=== PATIENT | female | born 1995 | race American Indian/Alaskan Native ===

== ENCOUNTER 2018-10-08 13:13 | Emergency (ER) | payer OTHER ==
--- NOTE | 2018-10-08 14:07 | Emergency Department Report ---
Chief Complaint: Medical Clearance Stated Complaint: THYROID Time Seen by Provider: 10/08/18 14:02 - HPI History of Present Illness: 23 y o female with hx of thyroid surgery done 3 years ago taking levothyroxine 150 mg daily presents for medication refill . Pt states she just moved here and ran out of her prescription yesterday. she sates she does not hav a PCP yet. Denies any symptoms - ROS Review of Systems: As noted in HPI - Exam Physical Exam: GEN: AAO x 3, no acute distress LUNGS: CTAB NECK: non tender, non edematous MSE screening note: Focused history and physical exam performed. Due to findings the following was ordered: ED Medical Decision Making - Medical Decision Making 23 y o f presents for medication refill VSS no acute distress discuss f/u with pcp ED Disposition for MSE Clinical Impression: Medication refill Disposition: DC- TO HOME OR SELFCARE Is pt being admited?: No Does the pt Need Aspirin: No Condition: Stable Instructions: Thyroid Supplement (By mouth) Additional Instructions: follow up with your PCP As refered take your levothyroxine daily Prescriptions: Levothyroxine [Synthroid] 150 mcg PO QAM #60 tablet Referrals: CASSIE RAI MD [Staff Physician] - 3-5 Days [facility] [Provider Group] - 3-5 Days [facility] [Outside] - 3-5 Days Forms: Work/School Release Form(ED)
[2018-10-08 14:12] VITALS: BP 140/69
== END 2018-10-08 14:20 | disposition home or self-care (01) ==
LOC: ED 13:13
DX: E03.9 Hypothyroidism, unspecified (principal); Z76.0 Encounter for issue of repeat prescription
CPT/HCPCS: 99282

== ENCOUNTER 2018-12-16 09:02 | Emergency (ER) | payer OTHER ==
--- NOTE | 2018-12-16 09:32 | Emergency Department Report ---
HPI - General Chief Complaint: Recheck/Abnormal Lab/Rx Time Seen by Provider: 12/16/18 09:20 - HPI HPI: 23-year-old -[place] female presents to the emergency department to get a refill of her levothyroxine, which she says that she has been out of for one week. She has a history of Graves' disease. She denies any physical complaints at this time. She does not have a primary care physician as she says she does not have insurance. ED Past Medical Hx - Past Medical History Additional medical history: GRAVES / DRESS - Surgical History Additional Surgical History: left hand x4, left foot, throidectomy, abscess removal x4 - Social History Smoking Status: Never Smoker Substance Use Type: None - Medications Home Medications: Home Medications Medication Instructions Recorded Confirmed Last Taken Type Levothyroxine [Synthroid] 150 mcg PO QAM #30 tablet 12/16/18 Unknown Rx ED Review of Systems ROS: Stated complaint: THYROID MEDS REFILL Other details as noted in HPI Comment: All other systems reviewed and negative Constitutional: denies: chills, fever Eyes: denies: eye pain, vision change Cardiovascular: denies: chest pain, palpitations Gastrointestinal: denies: nausea, vomiting Skin: denies: rash, lesions Neurological: denies: headache, weakness Physical Exam - Physical Exam Vital Signs: Vital Signs 12/16/18 09:11 Temperature 98.6 F Pulse Rate 97 H Respiratory 16 Rate Blood Pressure 139/82 O2 Sat by Pulse 98 Oximetry Physical Exam: GENERAL: The patient is well-developed well-nourished. HENT: Normocephalic. Atraumatic. Patient has moist mucous membranes. EYES: Extraocular motions are intact. Pupils equal bilaterally. No current exophthalmos or proptosis. NECK: Supple. Trachea is midline. CHEST/LUNGS: Clear to auscultation. There is no respiratory distress noted. HEART/CARDIOVASCULAR: Regular. There is no tachycardia. There is no murmur. ABDOMEN: here is no abdominal distention. SKIN: Skin is warm and dry. NEURO: The patient is awake, alert, and oriented. The patient is cooperative. The patient has no focal neurologic deficits. The patient has normal speech. MUSCULOSKELETAL: There is no tenderness or deformity. There is no evidence of acute injury. ED Course Vital Signs 12/16/18 09:11 Temperature 98.6 F Pulse Rate 97 H Respiratory 16 Rate Blood Pressure 139/82 O2 Sat by Pulse 98 Oximetry ED Medical Decision Making - Medical Decision Making This patient presents solely for the request of a medication refill of her levothyroxine. The patient does not have a primary care physician. She was g iven a one-month refill of her medication and multiple referrals for local primary care clinics. She has no physical complaints, including anything that would be concerning for hyperthyroidism or hypothyroidism. Vital signs stable. - Differential Diagnosis hyperthyroidism, hypothyroidism, Graves' disease Critical Care Time: No Critical care attestation.: If time is entered above; I have spent that time in minutes in the direct care of this critically ill patient, excluding procedure time. ED Disposition Clinical Impression: Medication refill Disposition: DC-01 TO HOME OR SELFCARE Is pt being admited?: No Condition: Stable Instructions: Hypothyroidism (ED) Additional Instructions: Please follow up with one of the referred primary care clinics to establish care. Return to the emergency Department with any concerns or any acute distress. Prescriptions: Levothyroxine [Synthroid] 150 mcg PO QAM #30 tablet Referrals: [facility] [Outside] - 3-5 Days [facility] [Outside] - [facility] - [facility]-5 Days Time of Disposition: 09:32
[2018-12-16 09:50] VITALS: BP 135/78
== END 2018-12-16 09:47 | disposition home or self-care (01) ==
LOC: ED 09:02
DX: E05.00 Thyrotoxicosis with diffuse goiter without thyrotoxic crisis or storm (principal); Z76.0 Encounter for issue of repeat prescription; Z88.1 Allergy status to other antibiotic agents; Z88.2 Allergy status to sulfonamides; Z88.6 Allergy status to analgesic agent; Z88.8 Allergy status to other drugs, medicaments and biological substances
CPT/HCPCS: 99282

== ENCOUNTER 2019-01-17 17:35 | Emergency (ER) | payer OTHER ==
[2019-01-17 18:08] VITALS: BP 137/77
--- NOTE | 2019-01-17 18:10 | Emergency Department Report ---
Blank Doc - Documentation Documentation: This is a 23-year-old female that presents with generlized weakness. Stated has been out of her medication for her thyroid. Also has headache after hitting headache against metal pole at work last week. Denies any LOC. Stated headache is getting worse. This initial assessment/diagnostic orders/clinical plan/treatment(s) is/are subject to change based on patient's health status, clinical progression and re- assessment by fellow clinical providers in the ED. Further treatment and workup at subsequent clinical providers discretion. Patient/guardians urged not to elope from the ED as their condition may be serious if not clinically assessed and managed. Initial orders include: 1- Patient sent to [facility] for further evaluation and treatment. 2- labs 3- CT head
[2019-01-17 19:22] LABS: Basophils # (Auto) 0.1 K/mm3 (0.0-0.1); Basophils % (Auto) 0.4 % (0.0-1.8); Eosinophils % (Auto) 0.2 % (0.0-4.3); Hematocrit 36.6 % (30.3-42.9); Hemoglobin 11.9 gm/dl (10.1-14.3); Lymphocytes # (Auto) 2.8 K/mm3 (1.2-5.4); Lymphocytes % (Auto) 22.8 % (13.4-35.0); Mean Corpuscular HGB Conc 33 % (30-34); Mean Corpuscular Volume 81 fl (79-97); Monocytes # (Auto) 0.7 K/mm3 (0.0-0.8); Monocytes % (Auto) 5.9 % (0.0-7.3); Platelet Count 308 K/mm3 (140-440); Red Blood Count 4.54 M/mm3 (3.65-5.03); Red Cell Distribution Width 14.7 % (13.2-15.2)
[2019-01-17 19:40] LABS: BUN/Creatinine Ratio 11; Blood Urea Nitrogen 8 mg/dL (7-17); Calcium 9.2 mg/dL (8.4-10.2); Hemolysis Index 6
[2019-01-17] MEDS ORDERED: REGLAN PO ONE (20:23)
[2019-01-17] MEDS ORDERED: DECADRON IM ONE (20:23)
[2019-01-17] MEDS ORDERED: TYLENOL PO ONE (20:23)
[2019-01-17] MEDS ORDERED: BENADRYL PO ONE (20:23)
--- NOTE | 2019-01-17 20:51 | Emergency Department Report ---
ED General Adult HPI - General Chief complaint: Medical Clearance Stated complaint: THYROID LEVELS CHECK/NAIL Time Seen by Provider: 01/17/19 18:08 Source: patient Mode of arrival: Ambulatory Limitations: No Limitations - History of Present Illness Initial comments: Patient is a 23-year-old [place] female with a history of hypothyroidism status post thyroidectomy on Synthroid 150 g by mouth daily out of medication for 3 days has secondary complaint of head versus metal pole at work 3 days ago there is no LOC no epistaxis no nausea vomiting no dizziness no lightheadedness higher there is persistent headaches 5/10. Since there is no swelling or d eformity patient request a refill of medications Onset/Timin -: days(s) Location: head Severity scale (0 -10): 10 Quality: aching Consistency: constant Improves with: none Worsens with: movement, other (activity ) Associated Symptoms: headaches Treatments Prior to Arrival: none - Related Data Previous Rx's Medication Instructions Recorded Last Taken Type Levothyroxine [Synthroid] 150 mcg PO QAM #30 tablet 12/16/18 Unknown Rx Acetaminophen [Acetaminophen TAB] 1,000 mg PO Q6HR PRN #30 tablet 01/17/19 Unknown Rx Levothyroxine [Synthroid] 150 mcg PO QAM #30 tablet 01/17/19 Unknown Rx Metoclopramide [Reglan] 10 mg PO ACHS PRN #30 tablet 01/17/19 Unknown Rx diphenhydrAMINE [Benadryl CAP] 25 mg PO Q6HR PRN #30 capsule 01/17/19 Unknown Rx Allergies Allergy/AdvReac Type Severity Reaction Status Date / Time ampicillin Allergy Anaphylaxis Verified 12/16/18 09:04 Cephalosporins Allergy Unknown Verified 12/16/18 09:04 ketorolac [From Toradol] Allergy Swelling Verified 12/16/18 09:04 Sulfa (Sulfonamide Allergy Anaphylaxis Verified 12/16/18 09:04 Antibiotics) sulfamethoxazole Allergy Swelling Verified 12/16/18 09:04 [From Bactrim] trimethoprim [From Bactrim] Allergy Swelling Verified 12/16/18 09:04 amoxicillin AdvReac Hives Verified 12/16/18 09:04 ciprofloxacin AdvReac Rash Verified 12/16/18 09:04 clindamycin AdvReac Hives Verified 12/16/18 09:04 cyproheptadine AdvReac Swelling Verified 12/16/18 09:04 erythromycin base AdvReac Anaphylaxis Verified 10/08/18 14:10 methotrexate AdvReac Anaphylaxis Verified 10/08/18 14:10 vancomycin AdvReac Hives Verified 10/08/18 14:10 ED Review of Systems ROS: Stated complaint: THYROID LEVELS CHECK/NAIL Other details as noted in HPI Constitutional: denies: chills, fever Eyes: denies: eye pain, eye discharge, vision change ENT: denies: ear pain, throat pain Respiratory: denies: cough, shortness of breath, wheezing Cardiovascular: denies: chest pain, palpitations Endocrine: no symptoms reported Gastrointestinal: denies: abdominal pain, nausea, diarrhea Genitourinary: denies: urgency, dysuria, discharge Musculoskeletal: denies: back pain, joint swelling, arthralgia Skin: denies: rash, lesions Neurological: weakness. denies: headache, numbness, paresthesias, confusion, abnormal gait, vertigo Psychiatric: denies: anxiety, depression Hematological/Lymphatic: denies: easy bleeding, easy bruising ED Past Medical Hx - Past Medical History Previous Medical History?: Yes Additional medical history: GRAVES - Surgical History Past Surgical History?: Yes Additional Surgical History: left hand x4, left foot, throidectomy, abscess re moval x4 - Social History Smoking Status: Never Smoker - Medications Home Medications: Home Medications Medication Instructions Recorded Confirmed Last Taken Type Levothyroxine [Synthroid] 150 mcg PO QAM #30 tablet 12/16/18 01/17/19 Unknown Rx Acetaminophen [Acetaminophen TAB] 1,000 mg PO Q6HR PRN #30 tablet 01/17/19 Unknown Rx Levothyroxine [Synthroid] 150 mcg PO QAM #30 tablet 01/17/19 Unknown Rx Metoclopramide [Reglan] 10 mg PO ACHS PRN #30 tablet 01/17/19 Unknown Rx diphenhydrAMINE [Benadryl CAP] 25 mg PO Q6HR PRN #30 capsule 01/17/19 Unknown Rx ED Physical Exam - General Limitations: No Limitations General appearance: alert, in no apparent distress - Head Head exam: Present: normocephalic, normal inspection - Expanded Head Exam Expanded Head exam: Absent: laceration, abrasion, contusion, hematoma, racoon eyes, dominguez's sign, general tenderness, tenderness of temporal artery, CSF rhinorrhea, CSF otorrhea - Eye Eye exam: Present: normal appearance, PERRL, EOMI. Absent: conjunctival injection, nystagmus, periorbital swelling, periorbital tenderness Pupils: Present: normal accommodation - ENT ENT exam: Present: normal orophraynx, mucous membranes moist, TM's normal bilaterally, normal external ear exam - Neck Neck exam: Present: normal inspection, full ROM. Absent: tenderness, meningismus, lymphadenopathy, thyromegaly - Expanded Neck Exam Expanded Neck exam: Absent: tenderness (there is no posterior vertebral point tenderness ), midline deformity, anterior neck swelling, thyroid mass, carotid bruit, tracheal deviation - Respiratory Respiratory exam: Present: normal lung sounds bilaterally. Absent: respiratory distress, wheezes, stridor, chest wall tenderness - Cardiovascular Cardiovascular Exam: Present: regular rate, normal rhythm, normal heart sounds. Absent: systolic murmur, diastolic murmur, rubs, gallop - GI/Abdominal GI/Abdominal exam: Present: soft, normal bowel sounds. Absent: distended, tenderness, guarding, rebound, rigid, bruit, hernia - Rectal Rectal exam: Present: deferred - Extremities Exam Extremities exam: Present: normal inspection, full ROM, normal capillary refill. Absent: tenderness, calf tenderness - Back Exam Back exam: Present: normal inspection, full ROM, tenderness. Absent: CVA tenderness (R), muscle spasm, paraspinal tenderness, vertebral tenderness, rash noted - Neurological Exam Neurological exam: Present: alert, oriented X3, CN II-XII intact, normal gait, reflexes normal. Absent: motor sensory deficit - Expanded Neurological Exam Expanded Patient oriented to: Present: person, place, time Speech: Present: fluid speech Cranial nerves: EOM's Intact: Normal, Gag Reflex: Normal, Tongue Deviation: Normal, Nystagmus: Normal, Facial Sensation: Normal Cerebellar function: Romberg: Normal Upper motor neuron: Claudio Neglect: Normal, Pronator Drift: Normal Motor strength exam: RUE: 5, LUE: 5, RLE: 5, LLE: 5 Best Eye Response ([place]): (4) open spontaneously Best Motor Response ([place]): (6) obeys commands Best Verbal Response ([place]): (5) oriented [place] Total: 15 - Psychiatric Psychiatric exam: Present: normal affect, normal mood - Skin Skin exam: Present: warm, dry, intact, normal color ED Course Vital Signs 01/17/19 01/17/19 01/17/19 18:07 20:45 20:46 Temperature 98.3 F Pulse Rate 83 Respiratory 16 16 16 Rate Blood Pressure 137/77 O2 Sat by Pulse 99 Oximetry ED Medical Decision Making - Lab Data Result diagrams: 01/17/19 18:56 01/17/19 18:56 - Radiology Data Radiology results: report reviewed, image reviewed Patient: KRZYSZTOF PEREZ MR#: [id number] : 1995 Acct:[id number] Age/Sex: 23 / F ADM Date: 01/17/19 Loc: ED Attending Dr: Ordering Physician: GILBERT MILLS NP Date of Service: 01/17/19 Procedure(s): CT head/brain wo con Accession Number(s): [id number] cc: GILBERT MILLS NP CT HEAD WITHOUT CONTRAST INDICATION / CLINICAL INFORMATION: headache. TECHNIQUE: All CT scans at this location are performed using CT dose reduction for ALARA by means of automated exposure control. COMPARISON: None available. FINDINGS: HEMORRHAGE: No evidence of intracranial hemorrhage or extra-axial fluid collection. EXTRA-AXIAL SPACES: Cortical sulci, sylvian fissures and basilar cisterns have an unremarkable appearance. VENTRICULAR SYSTEM: The ventricular system is of normal size and configuration. CEREBRAL PARENCHYMA: No areas of abnormal brain parenchymal attenuation are identified. There is no indication of recent infarction. MIDLINE SHIFT OR HERNIATION: There is no mass effect. CEREBELLUM / BRAINSTEM: Brainstem and cerebellum have an unremarkable appearance. INTRACRANIAL VESSELS:No abnormalities are identified on this noncontrast head CT. ORBITS: visualized portions of the orbits have an unremarkable appearance. SOFT TISSUES of HEAD: No significant abnormality. CALVARIUM: Evaluation of bone windows reveals no abnormalities. PARANASAL SINUSES / MASTOID AIR CELLS: Paranasal sinuses are free from inflammatory mucosal disease. Mastoid air cells are normally pneumatized. IMPRESSION: 1. No abnormality identified on head CT without contrast. Signer Name: Jax Herrera MD Signed: 01/17/2019 8:52 PM Workstation Name: [id number] Transcribed By: REF Dictated By: CINDY FROEMAN MD Electronically Authenticated By: CINDY FOREMAN MD Signed Date/Time: 01/17/192051 DD/ 42 TD/TT: - Medical Decision Making CT head is normal ,headache is improved plan dc to home with tylenol, benadryl, reglan prn headache, refill levothyroxine, follow up with pcp in 2-3 days return to ed if symptoms worsen, pt verbalized agreement and understanding of discharge plan. Critical care attestation.: If time is entered above; I have spent that time in minutes in the direct care of this critically ill patient, excluding procedure time. ED Disposition Clinical Impression: Headache Qualifiers: Headache type: unspecified Headache chronicity pattern: acute headache Intractability: not intractable Qualified Code(s): R51 - Headache Disposition: DC-01 TO HOME OR SELFCARE Is pt being admited?: No Does the pt Need Aspirin: No Condition: Stable Instructions: Acute Headache (ED) Prescriptions: Acetaminophen [Acetaminophen TAB] 1,000 mg PO Q6HR PRN #30 tablet PRN Reason: Headache diphenhydrAMINE [Benadryl CAP] 25 mg PO Q6HR PRN #30 capsule PRN Reason: Headache Metoclopramide [Reglan] 10 mg PO ACHS PRN #30 tablet PRN Reason: Headache Levothyroxine [Synthroid] 150 mcg PO QAM #30 tablet Referrals: [facility] [Outside] - 3-5 Days Forms: Work/School Release Form(ED)
--- NOTE | 2019-01-17 21:56 | Cat Scan Report ---
CT HEAD WITHOUT CONTRAST INDICATION / CLINICAL INFORMATION: headache. TECHNIQUE: All CT scans at this location are performed using CT dose reduction for ALARA by means of automated e xposure control. COMPARISON: None available. FINDINGS: HEMORRHAGE: No evidence of intracranial hemorrhage or extra-axial fluid collection. EXTRA-AXIAL SPACES: Cortical sulci, sylvian fissures and basilar cisterns have an unremarkable appear ance. VENTRICULAR SYSTEM: The ventricular system is of normal size and configuration. CEREBRAL PARENCHYMA: No areas of abnormal brain parenchymal attenuation are identified. There is no i ndication of recent infarction. MIDLINE SHIFT OR HERNIATION: There is no mass effect. CEREBELLUM / BRAINSTEM: Brainstem and cerebellum have an unremarkable appearance. INTRACRANIAL VESSELS:No abnormalities are identified on this noncontrast head CT. ORBITS: visualized portions of the orbits have an unremarkable appearance. SOFT TISSUES of HEAD: No significant abnormality. CALVARIUM: Evaluation of bone windows reveals no abnormalities. PARANASAL SINUSES / MASTOID AIR CELLS: Paranasal sinuses are free from inflammatory mucosal disease. Mastoid air cells are normally pneumatized. IMPRESSION: 1. No abnormality identified on head CT without contrast. Signer Name: Jax Herrera MD Signed: 01/17/2019 9:52 PM Workstation Name: [id number]
== END 2019-01-17 22:59 | disposition home or self-care (01) ==
LOC: ED 17:35
DX: R51 Headache (principal); E05.00 Thyrotoxicosis with diffuse goiter without thyrotoxic crisis or storm; Z90.89 Acquired absence of other organs; Z88.2 Allergy status to sulfonamides; Z88.6 Allergy status to analgesic agent; Z88.1 Allergy status to other antibiotic agents
CPT/HCPCS: 36415; 70450; 80048; 84436; 84443; 84481; 84703; 85025; 96372; 99284; J1100